=== PATIENT | female | born 2000 | race African-American/Black ===

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

== ENCOUNTER 2019-05-30 08:56 | Emergency (ER) | payer MEDICAID, OTHER ==
[~2019-05-30] VITALS: Ht 167.6 cm; Wt 54.2 kg
[2019-05-30 08:58] VITALS: BP 103/60
--- NOTE | 2019-05-30 09:22 | PHYS DOC ---
Past Medical History Past Medical History: Depression, STD, Other Additional Past Medical Histor: GENITAL HERPES Past Surgical History: Other Additional Past Surgical Histo: eye surgery Smoking Status: Current Every Day Smoker Alcohol Use: None Drug Use: None Adult General Chief Complaint Chief Complaint: EYE PROBLEMS [facility] HPI Patient is a 18 year old female who presents with complaint of pain and swelling and redness to the left eyes. Her symptoms started approximately 5 days ago and has gradually gotten worse. She has tried [id number] eyedrops without relief. She has had some increased drainage from the left eye as well. 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 She has no right eye visual disturbance or swelling/pain/infection. No sick contacts. No fever or chills. Review of Systems Review of Systems All other ROS is negative unless otherwise stated in [facility] Allergies Allergies Allergies Coded Allergies Type Severity Reaction Last Updated Verified No Known Drug Allergies 11/03/13 No Physical Exam Physical Exam See above Constitutional: Well developed, well nourished, no acute distress, non-toxic appearance. [] HENT: Normocephalic, atraumatic, bilateral external ears normal, oropharynx moist, no oral exudates, nose normal. [] Eyes: Right eye conjunctiva is normal and pupil is reactive to light and normal size. Extraocular muscles are intact bilaterally. The left conjunctiva is injected. There is no visualized pupil in the left eye which is normal for this patient. She does have some crusting on the eyelid of the left eye and the right eye. No soft tissue swelling. Neck: Normal range of motion, no tenderness, supple, no stridor. [] Cardiovascular:Heart rate regular rhythm, no murmur [] Lungs & Thorax: Bilateral breath sounds clear to auscultation [] Skin: Warm, dry, no erythema, no rash. [] Extremities: No tenderness, no cyanosis, no clubbing, RdernOM intact, no edema. [] Neurologic: Alert and oriented X 3, normal motor function, normal sensory function, no focal deficits noted. [] Current Patient Data Vital Signs Vital Signs Date Time Temp Pulse Resp B/P (MAP) Pulse Ox O2 Delivery O2 Flow Rate FiO2 05/30/19 08:58 97.6 61 19 103/60 (74) 96 Room Air 97.6 EKG EKG [] Radiology/Procedures Radiology/Procedures [] Course & Med Decision Making Course & Med Decision Making Pertinent Labs and Imaging studies reviewed. (See chart for details) 0918: Patient seen for eye pain and inflammation. Examination is consistent with conjunctivitis. We'll start the patient on eyedrops. I will go ahead and have her treat both eyes as she does have some mild crusting of the right eye as well. Dragon Disclaimer Dragon Disclaimer This electronic medical record was generated, in whole or in part, using a voice recognition dictation system. Departure Departure Impression: Primary Impression: Bacterial conjunctivitis of left eye Disposition: HOME, SELF-CARE Condition: STABLE Referrals: NO PCP (PCP) Patient Instructions: Bacterial Conjunctivitis Additional Instructions: Please fill the prescription you were given and use as directed. HILDA VÁSQUEZ DO May 30, 2019 09:22
== END 2019-05-30 09:24 | disposition home or self-care (01) ==
LOC: ER 08:56
DX: H10.9 Unspecified conjunctivitis (principal); F17.200 Nicotine dependence, unspecified, uncomplicated; Z98.890 Other specified postprocedural states
CPT/HCPCS: 99281